=== PATIENT | female | born 1935 | race Caucasian/White ===

== ENCOUNTER → 2021-04-02 12:58 | Outpatient (CLI) | payer MEDICARE, OTHER, SELFPAY ==
--- NOTE | 2021-04-02 13:14 | DI.CT.S_ITS ---
PROCEDURE: CT UE RT WO CON INDICATIONS: Primary osteoarthritis, right shoulder TECHNIQUE: Noncontrast 1-1.5 mm thick sections acquired from the acromioclavicular joint to the inferior scapula, with coronal and sagittal reformatting. COMPARISON: None. FINDINGS: Image quality: Excellent. Bones: No acute fracture or dislocation. Severe degenerative changes are seen in the glenohumeral joint with full-thickness joint space narrowing, subchondral sclerosis and subchondral cystic changes, and marginal osteophyte formation. There is remodeling of the articular surfaces resulting in mild 5 degree glenoid retroversion relative to the midplane of the scapula at the mid glenoid level. Moderate degenerative changes are seen at the acromioclavicular joint with subchondral cystic changes and marginal osteophyte formation. Chronic traction cystic changes are seen in the posterosuperior humeral head and at the greater and lesser tuberosities. No acute displaced rib fracture. The right sternoclavicular joint is intact. Soft tissues: Moderate glenohumeral joint effusion is present. No disproportionate atrophy of the rotator cuff musculature is seen. However, the tendons, ligaments, labrum, and articular cartilages are not well evaluated with standard CT. IMPRESSION: 1. Severe glenohumeral osteoarthrosis including full-thickness joint space narrowing. There is mild glenoid retroversion measuring 5 degrees relative to the midplane of the scapula at the mid glenoid level. Moderate glenohumeral effusion. 2. Moderate acromioclavicular osteoarthrosis. Dictated by: David Nvaarro M.D. on 04/02/2021 at 14:58 Approved by: David Navarro M.D. on 04/02/2021 at 15:05
== END ==
PROVIDERS: PCP Family Medicine; Referring Provider Orthopaedic Surgery; Visit Provider Orthopaedic Surgery
DX: M19.011 Primary osteoarthritis, right shoulder (principal)
CPT/HCPCS: 73200

== ENCOUNTER → 2021-06-12 10:34 | Outpatient (CLI) | payer MEDICARE, OTHER, SELFPAY ==
[2021-06-12 12:34] LABS: COVID19 -Nasal RAPID Negative (Negative)
== END ==
PROVIDERS: PCP Family Medicine; Visit Provider Physician Assistant
DX: Z20.822 Contact with and (suspected) exposure to COVID-19 (principal)
CPT/HCPCS: 87635; C9803

== ENCOUNTER 2021-06-16 09:35 | Inpatient (IN) | payer MEDICARE, OTHER, SELFPAY ==
[2021-06-08 13:29] VITALS: BMI 25.4
[2021-06-15] VITALS (15 sets, daily range): BP systolic 116–160; BP diastolic 7–88; PULSE 62–84; RESP 14–22; TEMP 36.1–37.3; O2SAT 95–99; BMI 25.4
--- NOTE | 2021-06-15 06:00 | DI.RAD.S_ITS ---
PROCEDURE: XR SHOULDER RT 1V INDICATIONS: postop prosthesis placement TECHNIQUE: AP view of the right shoulder was acquired. COMPARISON: None. FINDINGS: Bones: Interval right shoulder arthroplasty without evidence of hardware compromise. No suspicious bony lesions. Visualized ribs appear intact. Soft tissues: Subcutaneous gas about the shoulder. IMPRESSION: Expected postsurgical change. Dictated by: Emil Najera M.D. on 06/15/2021 at 15:35 Approved by: Emil Najera M.D. on 06/15/2021 at 15:37
[2021-06-15] MEDS: LACTATED RINGERS 1,000 ML 84 ML IV (09:31)
--- NOTE | 2021-06-15 09:34 | PM.PREOP ---
Pre-operative Note COVID-19 COVID-19 status: Negative Result date/Date tested (Pos, Neg/Pending): 06/12/21 Interval Note History & Physical reviewed/Exam performed by Physician: Yes Changes to H&P: No
[2021-06-15] MEDS: CELECOXIB 200 MG CAPSULE PO (09:36)
[2021-06-15] MEDS: ACETAMINOPHEN 325 MG TABLET 975 MG PO (09:36)
[2021-06-15] MEDS: PREGABALIN 75 MG CAPSULE PO (09:36)
--- NOTE | 2021-06-15 10:39 | SUR.PREOP ---
Addendum entered by Tika Shaw R.N. 06/15/21 10:46: Block end time 0728 and pt hand off to Surgery RN 0733 pt cond stable Original Note: Intrascalene block on right shoulder time out at 0720. Block start time 07, pt on monitor with alarms on , 02 @ 2l nc and VS monitored Q 5 minutes.
[2021-06-15] MEDS: CEFAZOLIN 1 GM VIAL 2 GM IV (10:59)
[2021-06-15] MEDS: TRANEXAMIC ACID 1,000 MG VIAL 1000 MG INJ ×2 (11:08→12:11)
--- NOTE | 2021-06-15 11:14 | SUR.OPER ---
Beach chair with David/Miguel shoulder positioner. Lower body on padded OR bed. Head in foam padded head cradle, secured with straps. Non-operative arm secured <90 degrees abduction. Pillow under knees. Safety belt at thigh. Cloth tape over blanket over lower legs.
[2021-06-15] MEDS: THROMBIN (RECOMBINANT) 5,000 UNIT VIAL 5000 UNIT TOP (11:30)
--- NOTE | 2021-06-15 12:42 | PM.OP.1 ---
Operative Date/Time/Diagnoses Date of procedure: 06/15/21 Time of procedure: 12:42 Pre-op diagnosis: Right shoulder osteoarthritis Post-op diagnosis: same Procedure & Clinicians Procedure: Right total shoulder replacement Same procedure as scheduled: Yes Indications: The patient has had progressively worsening right shoulder pain with radiographic changes consistent with arthritis. Non-operative management has failed and the patient has requested total shoulder replacement. The risks, benefits and alternatives to surgery were discussed with the patient prior to proceeding. Risks discussed included, but were not limited to, failure to relieve pain, stiffness, infection, nerve damage, deep venous thrombosis, pulmonary embolism, stroke, coma, heart attack, permanent paralysis and , as well as the potential need for eventual revision of the prosthetic. Surgeon: Dinesh Sanford [employer] Project Manager: Roxy Low Click Yes if Unassisted: No Anesthesia Type: General, Peripheral nerve block and Local Operative Notes Findings: Severe osteoarthritis of the glenohumeral joint with a large inferior humeral osteophyte. Intact rotator cuff. Closure Type: primary Specimen(s): none sent Prosthetic devices, grafts, tissues, transplants, or devices: Implants used in this procedure manufactured by the [employer] and included a canal sparing total shoulder prosthetic system with a size 2 humeral stem, a 46 mm x 18 mm neutral humeral head and a 46 mm pegged all polyethylene E +glenoid. In addition a speed bridge anchor system from [employer] was used for subscapularis closure. Applied: implant(s) Estimated Blood Loss (mL): 200 Blood products transfused: none Procedure in detail: The patient was seen in the pre-operative area, where the patient identified the right shoulder as the operative site and this was marked with my initials. The patient received pre-operative antibiotics, underwent an interscalene block, and was taken to the operating room and placed on the operative table in the supine position. After satisfactory anesthesia, a full ?time out? was performed. The patient was repositioned in the ?beach chair? position using a dedicated positioner. All pressure points were well padded, and the knees were slightly bent to prevent tension on the sciatic nerves. The right arm was prepared from the fingers to the base of the neck with ChloroPrep in the usual fashion and draped through sterile drapes. An approximately 12 cm incision was created, starting at the clavicle above the coracoid process and extended towards the deltoid insertion. The deltopectoral interval was used to access the shoulder. The cephalic vein was taken laterally. A self retaining retractor was placed. The upper centimeter of the pectoralis major tendon was released. The ?three sisters? were identified and cauterized. The axillary nerve was palpated and protected throughout the case. The biceps was released from its groove and tenodesed over the top of the pectoralis major tendon. The subscapularis was released from the lesser tuberosity with a subscapularis peel and tagged for later repair. The shoulder was dislocated and a cutting guide was used for the proximal humeral osteotomy in 30 degrees of retroversion. A humeral head trial prosthetic was placed on the proximal humerus in used to place the central guide pin. The stepped Reamer was then used to ream the proximal humeral metaphysis. A proximal humeral protector was then placed. We then removed the self-retaining retractor and placed retractors to access the glenoid. The subscapularis was released with a ?360 degree release? with care being taken to protect the axillary nerve with the inferior portion of this procedure. The remnant of labrum and biceps stump were removed. The appropriate size reamer was chosen with the glenoid sizer, and the guide pin placed. The glenoid was appropriately reamed. The guide for the peripheral holes was used and the center hole enlarged. The trial glenoid was placed with good stability. We then cemented the final implant into place after irrigating the peg holes and drying them with thrombin-soaked Gelfoam. We returned our attention to the humerus, a trial humeral head was applied and a trial reduction performed. Stability was checked with 50% posterior translation with spontaneous reduction, 45? external rotation with the subscapularis held in the repaired position and 70? of internal rotation in the ?scarecrow position?. This was felt to be satisfactory and the appropriate implants were opened. The humeral stem prosthetic was impacted into the humerus. The humeral head was applied when the stem was still slightly proud and impacted to both seat the head and fully seat the stem. The joint was relocated one final time. The joint was irrigated and the subscapularis repaired using an [employer] speed bridge anchor system to do a double row repair. Deltopectoral interval was closed with interrupted 0 Vicryl. The subcutaneous layer was closed with 3-0 Vicryl, and the skin with a running 3-0 V-Lock suture and Dermabond. An Aquacel Ag dressing was applied, the patient?s arm was placed in a sling, and the patient was taken to recovery having tolerated the procedure well. Complications: none Post-operative Condition: stable Disposition: PACU Plan for aftercare: The patient will be maintained on a standard total shoulder rehab protocol. She will be maintained in the hospital overnight for pain control and likely discharged home tomorrow.
[2021-06-15] MEDS: LACTATED RINGERS 1,000 ML 100 ML IV ×2 (14:33→22:46)
--- NOTE | 2021-06-15 16:22 | PT.IIE ---
Current Diagnoses Primary osteoarthritis, right shoulder (06/15/21) Surgery Performed Operation Date: 06/15/21 10:15 Actual Procedures p Total Shoulder Arthroplasty(Right) - Dinesh Sanford MD Medical History (Last Updated 06/08/21 @ 14:11 by Elisabeth Devine RN) Arthritis Hearing impaired HTN (hypertension) Hypercholesteremia Osteoarthritis Physical Therapy Inpatient Evaluation/Re-Eval M1 PT/OT-IP Prior Functional Status Start: 06/15/21 14:39 Freq: NEEDED Status: Active Protocol: Document 06/15/21 16:22 AW (Rec: 06/15/21 16:39 AW [id number]) Medical Review Prior Functional Status Medical History Reviewed Yes Communication WNL. Pt is an effective verbal communicator. Mobility and Gait Independent without AD. Pt uses her treadmill at home for 30 minutes at a time and is able to walk at least that long in the community. Pt denies falls. Activities of Daily Living and IADL's Independent with all ADL's and IADL's. 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 Social History Household Members spouse Living Arrangements House Number of Floors (Floors) Two Floors Number of Stairs To Enter/Railing? 4 MARIO with bilateral rails. Pt walks up 11 steps with unilateral rail to kitchen/ view level Home Environment High Toilet,Walk in Shower, Built-In Shower Seat Home Equipment Straight Cane,Hand Held Shower Employment Status Retired Additional Social History Comment Pt states there is a vanity on the left side of the toilet. She has a recliner and plans to sleep there when she goes home. She lives with her spouse, Garrett. Her daughter, Yara, lives in [place], [place] but plans to assist at home when pt discharges. M2 PT-IP Current Condition Start: 06/15/21 14:39 Freq: NEEDED Status: Active Protocol: Document 06/15/21 16:22 AW (Rec: 06/15/21 16:39 AW [id number]) Physical Therapy Current Condition Current Condition Evaluation Date 06/15/21 Treatment Diagnosis R TSA; decreased independence with ADL's Onset Date 06/15/21 M3 PT-IP Subjective Start: 06/15/21 14:39 Freq: NEEDED Status: Active Protocol: Document 06/15/21 16:22 AW (Rec: 06/15/21 16:39 AW [id number]) Subjective Physical Therapy Visit Type Type Initial Evaluation Visit Start Time 15:58 Visit Stop Time 16:22 Total Visit Minutes 24 Number of MILLER FIRST Visits 0 Physical Therapy Visit Comments Patient Comments Pt is willing to participate with PT Patient Goals Return home with family support Therapy Pain Assessment Pain When Pain Assessed During Mobility Pain Present Pain Present Denied Pain M4 PT-IP Mobility and Gait Start: 06/15/21 14:39 Freq: NEEDED Status: Active Protocol: Document 06/15/21 16:22 AW (Rec: 06/15/21 16:39 AW [id number]) PT-Bed Mobility Assessment Supine to Sit Supine to Sit Minimal Assistance,1 Person Assistance Sit to Supine Sit to Supine Contact Guard Assistance PT-Transfer Assessment Sit to and From Stand Sit to and from Stand Contact Guard Assistance,1 Person Assistance,Use of Upper Extremities Equipment Transfer Assistive Device None Orthotic/Prosthetic Devices or Brace: Yes Transfers Transfer Destination Bed Transfer Technique pt ambulated SBA Transfer Ability Level of Assist Contact Guard Assistance Comments Mobility Comments Pt was lying in bed as PT arrived. She agreed to get up for sling fitting. She needed min assist to exit the bed to her left. She stood CGA and walked to the sink. Further, she walked around the room a total of 40 feet without AD SBA. Return to supine was CGA. Pt was positioned with pillow under right arm, call light on left side. Gait Assessment Gait Gait Assistance Required: Standby Assistance Distance (Feet) 40 Assistive Devices Assistive Device None Orthotic/Prosthetic Devices or Brace: Yes Gait Deviations General Gait Pattern Antalgic,Decreased Stride Length Comments Gait Comments Pt ambulated safely with good awareness and protection of her right shoulder. Stair Climbing Assessment Comments Stair Climbing Comments Not assessed. PT-Balance Assessment Sitting Balance and Reactions Static Sitting Balance Ability Good Dynamic Sitting Balance Ability Good Standing Balance and Reactions Static Standing Balance Ability Good Dynamic Standing Balance Ability Good Device Used none M5 PT-IP Objective Assessments Start: 06/15/21 14:39 Freq: NEEDED Status: Active Protocol: Document 06/15/21 16:22 AW (Rec: 06/15/21 16:39 AW [id number]) Orientation Orientation/Cognition Level of Alertness Alert Orientation Name,Day of Week,Place, Situation Language Function Ability No Deficits Noted Safety Awareness Understands Safety Issues Memory Description No Deficits Noted Gross Range of Motion Upper Extremity ROM Assessment Right Impaired Lower Extremity ROM Assessment Within Functional Limits Strength Upper Extremity Strength Assessment Right Impaired Lower Extremity Strength Assessment Within Functional Limits Sensation Assessment Sensation Gross Sensation Right UE Impaired Light Touch Impaired Proprioception (Position) Impaired Sensation Description Numbness M6 PT-IP Treatment Start: 06/15/21 14:39 Freq: NEEDED Status: Active Protocol: Document 06/15/21 16:22 AW (Rec: 06/15/21 16:39 AW [id number]) Physical Therapy Treatment Education Education Provided Precautions,Weight Bearing Status,Post-Op Packet,Safety Brace Education [place],Patient Other Treatments Other Treatment Performed Using mirror for visual feedback, educated pt on proper fit and function of soft sling. M7 PT-IP Assessment and Plan Start: 06/15/21 14:39 Freq: NEEDED Status: Active Protocol: Document 06/15/21 16:22 AW (Rec: 06/15/21 16:39 AW [id number]) PT Summary Assessment and Plan Potential Rehabilitation Potential Excellent Status of Condition at Evaluation Evolving Summary Impairments Pain,ROM,Strength,Bed Mobility ,Transfers Assessment Summary Ana is an 85 yo right-hand dominant woman seen for PT evaluation on POD0 following R TSA. She is independent in all regards at baseline. She required min assist for bed mobility, CGA for transfers on assessment. She had good understanding of her post-op precautions and was taught how to properly fit her shoulder sling. Pt will be safe for discharge home with family assist once medically cleared. Goals Bed Mobility Goal Standby Assistance Transfer Goal Standby Assistance Gait Goal Independent Gait Distance 200 Other Goals - up/down 10 steps with left rail ascending SBA Days to Meet Goals 2 Frequency of Treatment Frequency Of Treatment Twice a Day Treatment Plan Physical Therapy Treatment Plan Bed Mobility Training,Transfer Training,Gait Training, Therapeutic Exercise,Post Op Education,Discharge Planning, Hot or Cold Pack Other Recommendations and Next Treatment Review precautions and sling Focus fitting, doffing and donning. Instruct in distal UE AROM. Teach ADL management. Assess stair safety. Precautions Shoulder Precautions Sling,PROM,Internal Rotation to Body,No External Rotation, No Abduction,Forward Flexion to 90 degrees,Pendulums Weight Bearing Status Weight Bearing Status Non-Weight Bearing Allowed Weight Bearing Amount (enter % NWB RUE or #) (%) Recommendations To Nursing Amount of Assist Needed Standby Assistance Discharge Recommendations PT Discharge Recommendations Home with Assistance Transportation Needs at Discharge Private Vehicle
[2021-06-15] MEDS: ACETAMINOPHEN 325 MG TABLET 650 MG PO (22:40)
[2021-06-15] MEDS: ASPIRIN EC 81 MG TABLET PO (22:41)
[2021-06-15] MEDS: DOCUSATE 100 MG CAPSULE PO (22:41)
[2021-06-15] MEDS: OXYCODONE IR 5 MG TABLET PO (22:41)
[2021-06-16 05:00] VITALS: BP 133/76; PULSE 73; RESP 16; TEMP 36.6; O2SAT 96
[2021-06-16] MEDS: OXYCODONE IR 5 MG TABLET PO ×2 (05:13→08:22)
[2021-06-16 06:39] LABS: Hematocrit 32.4 % (36-46)
--- NOTE | 2021-06-16 07:36 | PM.DS.1 ---
History of Present Illness History of Present Illness Date Patient Seen: 06/16/21 Time Patient Seen: 07:36 Chief complaint: Right Total Shoulder Arthroplasty *OPB* Narrative: The history and physical are contained in the chart in a previously completed note. Please refer to that note for this information. Discharge Providers Provider Date of admission: 06/15/21 Discharge Date: 06/16/21 Primary care physician: Duglas Rosa DO Consults: 06/15/21 13:44 Consult to Discharge Planning Routine Comment: Consult to Physical Therapy Evaluate & Treat Comment: Physician Instructions: PROM 90 ff, 0 ER, 0 abd, IR to body, pendulums Consult to Respiratory Therapy Evaluate & Treat Comment: Physician Instructions: Evaluate and treat Discharge provider: Dinesh Sanford MD Summary Hospital Course Discharge Diagnosis: 1. Right shoulder osteoarthritis 2. Post hemorrhagic anemia Hospital Course: The patient was admitted to the hospital and taken directly to the operating room on June 15, 2021. She underwent a right total shoulder replacement without complications. On postoperative day 1 her block had worn off and she was comfortable with mild pain. She was noted to have a mild post hemorrhagic anemia that should resolve without specific treatment. Status at Discharge Cognitive/behavioral status at discharge: at baseline, oriented Functional status at discharge: independent ambulation Overall status at discharge: patient is progressing back to baseline Time Spent with Patient Time spent: Less than 30 minutes Exam Vital Signs (past 8 hours): - 06/16/21 05:00 Temperature 98 F Pulse Rate 73 Respiratory Rate 16 Blood Pressure 133/76 Pulse Oximetry 96 Oxygen Delivery Method Nasal Cannula Oxygen Flow Rate 0 Narrative Exam Narrative: Right shoulder wound is dressed with no drainage on the bandage. Light touch is intact in the radial, ulnar, median, muscular cutaneous and axillary nerve distribution. She can extend her thumb, abduct her thumb and abduct her fingers, she can fire her biceps and deltoid. Objective Labs Result Diagrams: 06/16/21 06:28 Labs: Laboratory Results - last 24 hr 06/16/21 06:28 Hgb 11.0 L Hct 32.4 L PFSH Medical History (Updated 06/08/21 @ 14:11 by Elisabeth Devine RN) Arthritis Hearing impaired HTN (hypertension) Hypercholesteremia Osteoarthritis Surgical History (Updated 06/08/21 @ 14:11 by Elisabeth Devine RN) Hx of bilateral cataract extraction Hx of hammer toe correction Hx of tonsillectomy Social History household members: spouse Smoking Status: Never smoker alcohol intake: former Discharge Assessment & Plan Assessment and Plan Assessment: Stable postoperative day 1 status post right total shoulder replacement with a canal sparing prosthesis. She has a mild post hemorrhagic anemia as anticipated. This should not require specific management. She has been able to get up independently and should be ready to go home today. Plan of Treatment: Discharge to home, follow up my office in 10-14 days. Prescriptions have been sent in for oxycodone along with recommendations for acetaminophen for additional pain control and low-dose aspirin for DVT prophylaxis. She will have outpatient physical therapy. She has been instructed to use her hand only in front of her torso below shoulder level to lift no more than 1-2 lb. Discharge Plan Discharge Plan Patient Disposition: Home Discharge orders & Medications Discharge Orders: Discharge (Order); Ordered 06/16/21 Ordered By: Dinesh Sanford Prescriptions: New acetaminophen 325 mg Tablet 650 mg PO TID 30 Days Qty: 180 RF: 0 aspirin 81 mg Tablet,Delayed Release (Dr/Ec) 81 mg PO BID 42 Days Qty: 84 RF: 0 oxycodone 5 mg Tablet 5 mg PO Q4H PRN (Reason: Pain, Moderate (4-6)) Qty: 40 RF: 0 Continued potassium chloride 10 mEq Capsule, Extended Release 10 meq PO DAILY RF: 0 diphenhydramine HCl [Sleep Aid (diphenhydramine)] 50 mg Capsule 50 mg PO BEDTIME RF: 0 chlorthalidone 25 mg Tablet 25 mg PO DAILY RF: 0 Discontinued acetaminophen [Tylenol] 325 mg Capsule 325 mg PO BEDTIME RF: 0 Follow up/Referrals: Dinesh Sanford MD [Physician] - 2 Weeks Duglas Rosa DO [Primary Care Provider] - Diet/Activity/Treatments Diet: Diet as Tolerated and Regular Activity: You may use your right hand in front of your body below shoulder level to lift 1-2 lb maximum. Keep your arm in the sling when leaving the house. You may do pendulum exercises. Cold/Heat Therapy: Apply ice to the right shoulder for fifteen minutes of every hour as needed for pain control. Skin/Wound/Dressing Care Report to your healthcare provider any signs of infection, such as:: chills, fever, night sweats, increased pain, unusual drainage and unusual redness Dressing: Leave the dressing intact until your follow-up visit. You may shower with the dressing in place. If the dressing becomes saturated with either water or blood, please call the office to have it evaluated. Visit Report/Discharge Packet Instructions: DI for Shoulder Replacement Stand Alone Forms: Surgery Discharge Discharge Data Primary Care Provider: Duglas Rosa Attending Provider: Dinesh Sanford VTE Deep Vein Thrombosis/Pulmonary Embolism Present on Admission: No
[2021-06-16 08:00] VITALS: BP 127/70; PULSE 69; RESP 16; TEMP 36.7; O2SAT 95
[2021-06-16] MEDS: ACETAMINOPHEN 325 MG TABLET 650 MG PO (08:16)
[2021-06-16] MEDS: ASPIRIN EC 81 MG TABLET PO (08:17)
[2021-06-16] MEDS: CHLORTHALIDONE 25 MG TABLET PO (08:17)
[2021-06-16] MEDS: DOCUSATE 100 MG CAPSULE PO (08:17)
[2021-06-16] MEDS: POTASSIUM CHLORIDE 10 MEQ TAB PO (08:17)
--- NOTE | 2021-06-16 09:40 | PT.IPTN ---
Current Diagnoses Primary osteoarthritis, right shoulder (06/16/21) Surgery Performed Operation Date: 06/15/21 10:15 Actual Procedures p Total Shoulder Arthroplasty(Right) - Dinesh Sanford MD Physical Therapy Treatment Note M2 PT-IP Current Condition Start: 06/15/21 14:39 Freq: NEEDED Status: Active Protocol: Document 06/15/21 16:22 AW (Rec: 06/15/21 16:39 AW [id number]) Physical Therapy Current Condition Current Condition Evaluation Date 06/15/21 Treatment Diagnosis R TSA; decreased independence with ADL's Onset Date 06/15/21 M3 PT-IP Subjective Start: 06/15/21 14:39 Freq: NEEDED Status: Active Protocol: Document 06/16/21 09:22 KS (Rec: 06/16/21 12:39 KS [id number]) Subjective Physical Therapy Visit Type Type Treatment Note Visit Start Time 09:22 Visit Stop Time 09:40 Total Visit Minutes 18 Number of SENIOR TECHNICAL MANAGER Visits 1 Physical Therapy Visit Comments Patient Comments Pt is willing to participate with PT Patient Goals Return home with family support M4 PT-IP Mobility and Gait Start: 06/15/21 14:39 Freq: NEEDED Status: Active Protocol: Document 06/16/21 09:22 KS (Rec: 06/16/21 12:39 KS [id number]) PT-Bed Mobility Assessment Supine to Sit Supine to Sit Standby Assistance,Head of Bed Elevated Sit to Supine Sit to Supine Standby Assistance,Head of Bed Elevated Scooting Scooting to Edge of Bed Standby Assistance Scooting Up and Down in Bed Standby Assistance PT-Transfer Assessment Equipment Transfer Assistive Device None Orthotic/Prosthetic Devices or Brace: Yes Transfers Transfer Destination Bed Transfer Technique pt ambulated SBA Transfer Ability Level of Assist Contact Guard Assistance Comments Mobility Comments Pt in bed upon arrival from therapy and agreeable to ambulation and stairs. Reveiwed shoulder precautions and UE AROM. Pt stated she sleeps in a recliner at home. SBA for sup<>sit and scooting EOB w/ HOB elevated. Pt sit<> stand w/o AD CGA. She then ambulated ~100 ft CGA to stairs and ascended/descended 9 total steps w/ unilateral handrail SBA w/ step over step pattern. Pt then ambulated additional 160ft SBA back to room and got back into bed SBA . Pillow positioned under RUE and all needs in reach. Gait Assessment Gait Gait Assistance Required: Standby Assistance,Contact Guard Assist Distance (Feet) 260 Assistive Devices Assistive Device None Orthotic/Prosthetic Devices or Brace: Yes Gait Deviations General Gait Pattern Antalgic,Decreased Stride Length Comments Gait Comments Pt ambulated ~260 ft total w/o AD and CGA for first ~100ft and SBA for remaining ~160 ft. Pt offered that she often walks 30 min a day on her treadmill at home. Stair Climbing Assessment Evaluation Level of Assist On Stairs Standby Assistance Devices Stair Climbing Assistive Devices Left Railing Technique/Endurance Stair Climbing Direction Ascend and Descend Stair Climbing Technique Step Over Step Number of Steps Climbed 3 Stair Climbing Set # Repetitions (reps) 3 Comments Stair Climbing Comments Pt safely ascended/descended 9 total steps w/ L rail ascending w/ step over step pattern and SBA. Pt stated she feels safe to complete steps at home and will have present. PT-Balance Assessment Sitting Balance and Reactions Static Sitting Balance Ability Good Dynamic Sitting Balance Ability Good Standing Balance and Reactions Static Standing Balance Ability Good Dynamic Standing Balance Ability Good Device Used none M5 PT-IP Objective Assessments Start: 06/15/21 14:39 Freq: NEEDED Status: Active Protocol: Document 06/15/21 16:22 AW (Rec: 06/15/21 16:39 AW [id number]) Orientation Orientation/Cognition Level of Alertness Alert Orientation Name,Day of Week,Place, Situation Language Function Ability No Deficits Noted Safety Awareness Understands Safety Issues Memory Description No Deficits Noted Gross Range of Motion Upper Extremity ROM Assessment Right Impaired Lower Extremity ROM Assessment Within Functional Limits Strength Upper Extremity Strength Assessment Right Impaired Lower Extremity Strength Assessment Within Functional Limits Sensation Assessment Sensation Gross Sensation Right UE Impaired Light Touch Impaired Proprioception (Position) Impaired Sensation Description Numbness M6 PT-IP Treatment Start: 06/15/21 14:39 Freq: NEEDED Status: Active Protocol: Document 06/16/21 09:22 KS (Rec: 06/16/21 12:39 KS [id number]) Physical Therapy Treatment Exercises Exercises Elbow Flexion/Extension,Wrist ROM,Hand ROM Education Education Provided Precautions,Weight Bearing Status,Post-Op Packet,Safety Brace Education Rosalio,[place],Patient M7 PT-IP Assessment and Plan Start: 06/15/21 14:39 Freq: NEEDED Status: Active Protocol: Document 06/16/21 09:22 KS (Rec: 06/16/21 12:39 KS [id number]) PT Summary Assessment and Plan Potential Rehabilitation Potential Excellent Status of Condition at Evaluation Evolving Summary Impairments Pain,ROM,Strength,Bed Mobility ,Transfers Progress Towards Goals Progressing Toward Goals Assessment Summary Ana is only requiring SBA for bed mobility, transfers, ambulation w/o AD, and stair training. Reveiwed surgical precautions and UE AROM. Pt ambulated ~260ft w/o AD and ascended/descended 9 steps w/ unilateral rail and step over step pattern SBA. She feels safe to go home w/ family support and will benefit from outpatient therapy, which she has scheduled to begin next week. Goals Bed Mobility Goal Standby Assistance Transfer Goal Standby Assistance Gait Goal Independent Gait Distance 200 Other Goals - up/down 10 steps with left rail ascending SBA Days to Meet Goals 2 Frequency of Treatment Frequency Of Treatment Twice a Day Treatment Plan Physical Therapy Treatment Plan Bed Mobility Training,Transfer Training,Gait Training, Therapeutic Exercise,Post Op Education,Discharge Planning, Hot or Cold Pack Other Recommendations and Next Treatment Review precautions and sling Focus fitting, doffing and donning. Instruct in distal UE AROM. Teach ADL management. Assess stair safety. Precautions Shoulder Precautions Sling,PROM,Internal Rotation to Body,No External Rotation, No Abduction,Forward Flexion to 90 degrees,Pendulums Weight Bearing Status Weight Bearing Status Non-Weight Bearing Allowed Weight Bearing Amount (enter % NWB RUE or #) (%) Recommendations To Nursing Amount of Assist Needed Standby Assistance Discharge Recommendations PT Discharge Recommendations Home with Assistance Transportation Needs at Discharge Private Vehicle
--- NOTE | 2021-06-16 13:09 | PC.NURSE ---
Discharge: Pt feels ready to d/c home. Seen by PT and has been cleared to d/c. Provider here and gave pt d/c instructions. Pt has her sling on and it is corrrectly placed. Can move fingers but they are still a little numb from block. Brisk cap refill, Radial pulse present. Tolerates diet w/out problems. Vds w/out diff. Pain in control w/oral meds. Reviewed d/c packet. Rx has been esent. Questions answered. Pt d/c to home via auto w/spouse,
== END 2021-06-16 11:40 | disposition home or self-care (01) | DRG 483 ==
LOC: OR 09:46 → AC 09:46
PROVIDERS: Admitting Provider Orthopaedic Surgery; PCP Family Medicine; Referring Provider Family Medicine; Visit Provider Orthopaedic Surgery
PROC: 0RQJ0ZZ Repair Right Shoulder Joint, Open Approach (ICD-10-PCS; CPT 23472; principal; 2021-06-15 10:15)
DX: M19.011 Primary osteoarthritis, right shoulder (principal); M25.711 Osteophyte, right shoulder; I10 Essential (primary) hypertension; Z20.822 Contact with and (suspected) exposure to COVID-19
CPT/HCPCS: 36415; 64450; 73020; 85014; 85018; 97116; 97161; 97535; C1776; J0171; J0690; J1100; J2250; J2405; J2704; J3010